=== PATIENT | male | born 2000 | race Caucasian/White ===

== ENCOUNTER 2021-05-31 16:14 | Emergency (ER) | payer OTHER ==
[~2021-05-31] VITALS: Ht 175.3 cm; Wt 91.9 kg
[2021-05-31] MEDS ORDERED: AUGMENTIN 875 MG TAB PO ONE (22:10)
[2021-05-31] MEDS ORDERED: AUGM875T28 PO (22:12)
[2021-05-31 22:45] VITALS: BP 121/61
== END 2021-05-31 22:45 | disposition home or self-care (01) ==
LOC: M ED 16:14
DX: J01.90 Acute sinusitis, unspecified (principal); H66.93 Otitis media, unspecified, bilateral
CPT/HCPCS: 87804; 99283; U0003

== ENCOUNTER → 2021-10-03 | Outpatient (CLI) | payer OTHER ==
[~2021-10-03] MED LIST: AUGM875T28 PO; ISOVUE-300 61% 50ML VIAL As Ordered ONE; LIDOCAINE 1% MDV 20ML VIAL As Ordered ONE; TRIAMCINOLONE ACETONIDE SUSP 40 MG/ML VIAL (J3301) As Ordered ONE
== END ==
LOC: M RADPRO 11:11
PROVIDERS: ATTEND Physician Assistant Surgical
DX: S73.121A Ischiocapsular ligament sprain of right hip, initial encounter (principal); X58.XXXA Exposure to other specified factors, initial encounter; Y92.9 Unspecified place or not applicable
CPT/HCPCS: 20610; 77002; J3301; Q9967